=== PATIENT | male | born 1945 | race Caucasian/White ===

== ENCOUNTER 2023-01-16 11:22 | Inpatient (IN) ==
[2023-01-16 11:58] LABS: ABS Eosinophils 0.1 10^3/uL (0.0-0.5); ABS Lymphocytes 1.5 10^3/uL (1.0-4.8); ABS Monocytes 0.8 10^3/uL (0.0-1.1); ABS Neutrophils 6.4 10^3/uL (1.5-7.6); ABS Nucleated RBC 0.01 10^3/ul; Eosinophil % 1.6 %; Hematocrit 38.9 % (38-53); Hemoglobin 12.8 g/dL (13.2-16.3); Lymphocyte % 16.6 %; Mean Corpuscular Hemoglobin 29.3 pg (27-33); Mean Corpuscular Volume 88.9 fL (80-97); Mean Platelet Volume 10.7 fL (7.5-11.2); Nucleated Red Blood Cells % 0.1 /100 WBC (0.0-0.4); Platelet Count 164 10^3/uL (150-450); Red Blood Count 4.37 10^6/uL (4.06-5.63); Red Cell Distribution Width 14.7 % (12-17); White Blood Count 8.8 10^3/uL (3.6-10.2)
[2023-01-16 12:42] LABS: Albumin 3.9 g/dL (3.2-5.2); Albumin/Globulin Ratio 1.4 (1-3); C Reactive Protein 6.15 mg/L (<8.01); Calcium 9.1 mg/dL (8.6-10.3); Creatinine, Serum 1.73 mg/dL (0.67-1.17); Globulin 2.7 g/dL (2-4); Magnesium 1.8 mg/dL (1.9-2.7); Phosphorus 2.3 mg/dL (2.5-5.0); Potassium 4.6 mmol/L (3.5-5.0); Total Bilirubin 0.6 mg/dL (0.2-1.0); Total Protein 6.6 g/dL (6.4-8.9); eGFR CKD-EPI 40.2 (>60)
[2023-01-16 13:13] LABS: High Sensitivity Troponin 1 Hr 696 pg/mL (<20)
[2023-01-16] MEDS ORDERED: NS 0.9% 1000 ml BAG 1,000 ML IV ONE (13:42)
[2023-01-16] MEDS ORDERED: Iodixanol (CONTRAST) 320 MG/ML 100 ML SDV IV ONE (13:49)
[2023-01-16] MEDS ORDERED: Heparin DRIP 25,000 UNITS BAG 25,000 UNITS/500 ML BAG IV SCH (14:30)
[2023-01-16 15:00] LABS: ABS Eosinophils 0.1 10^3/uL (0.0-0.5); ABS Lymphocytes 1.1 10^3/uL (1.0-4.8); ABS Monocytes 0.7 10^3/uL (0.0-1.1); ABS Neutrophils 6.5 10^3/uL (1.5-7.6); ABS Nucleated RBC 0.01 10^3/ul; Eosinophil % 0.7 %; Hematocrit 37.5 % (38-53); Hemoglobin 12.4 g/dL (13.2-16.3); Lymphocyte % 13.1 %; Mean Corpuscular Hemoglobin 28.9 pg (27-33); Mean Corpuscular Volume 87.7 fL (80-97); Mean Platelet Volume 10.8 fL (7.5-11.2); Nucleated Red Blood Cells % 0.1 /100 WBC (0.0-0.4); Platelet Count 152 10^3/uL (150-450); Red Blood Count 4.28 10^6/uL (4.06-5.63); Red Cell Distribution Width 14.7 % (12-17); White Blood Count 8.4 10^3/uL (3.6-10.2)
[2023-01-16] MEDS ORDERED: Heparin 5000 UNITS/ML 1 mL VIAL IV SCH (15:00)
[2023-01-16 15:43] LABS: Creatinine, Serum 1.58 mg/dL (0.67-1.17); eGFR CKD-EPI 44.8 (>60)
[2023-01-16] MEDS ORDERED: Lactated Ringers 1000 ml BAG 1,000 ML IV SCH (16:00)
[2023-01-16] MEDS ORDERED: Magnesium Sulfate 2 gm BAG 2 GM/50 ML BAG IVPB ONE (17:11)
[2023-01-16 18:21] LABS: Ferritin 53.9 ng/mL (24-336)
[2023-01-17 05:20] LABS: ABS Eosinophils 0.1 10^3/uL (0.0-0.5); ABS Lymphocytes 1.5 10^3/uL (1.0-4.8); ABS Monocytes 0.8 10^3/uL (0.0-1.1); ABS Nucleated RBC 0.01 10^3/ul; Eosinophil % 1.6 %; Hematocrit 35.4 % (38-53); Lymphocyte % 19.9 %; Mean Corpuscular Hemoglobin 29.7 pg (27-33); Mean Corpuscular Volume 87.5 fL (80-97); Mean Platelet Volume 11.1 fL (7.5-11.2); Nucleated Red Blood Cells % 0.1 /100 WBC (0.0-0.4); Platelet Count 149 10^3/uL (150-450); Red Blood Count 4.04 10^6/uL (4.06-5.63); Red Cell Distribution Width 14.8 % (12-17); White Blood Count 7.4 10^3/uL (3.6-10.2)
[2023-01-17 06:20] LABS: Calcium 8.4 mg/dL (8.6-10.3); Creatinine, Serum 1.37 mg/dL (0.67-1.17); Magnesium 2.3 mg/dL (1.9-2.7); eGFR CKD-EPI 53.1 (>60)
[2023-01-17] MEDS: Enoxaparin 80 MG/0.8 ML SYR SUBCUT SCH ×2 (09:24→19:27)
[2023-01-17] MEDS: Aspirin EC 81 mg TAB.EC (enteric coated) PO SCH (09:24)
[2023-01-17] MEDS: Ferric Gluconate IV 250 MG in NS 0.9% 250 ml 200 ML IVPB SCH (14:00)
[2023-01-18 08:03] LABS: ABS Eosinophils 0.2 10^3/uL (0.0-0.5); ABS Lymphocytes 1.3 10^3/uL (1.0-4.8); ABS Monocytes 0.8 10^3/uL (0.0-1.1); ABS Neutrophils 5.6 10^3/uL (1.5-7.6); Eosinophil % 2.6 %; Hematocrit 38.1 % (38-53); Hemoglobin 12.6 g/dL (13.2-16.3); Lymphocyte % 16.3 %; Mean Corpuscular Hemoglobin 29.4 pg (27-33); Mean Corpuscular Volume 88.9 fL (80-97); Mean Platelet Volume 11.2 fL (7.5-11.2); Nucleated Red Blood Cells % 0.1 /100 WBC (0.0-0.4); Platelet Count 164 10^3/uL (150-450); Red Blood Count 4.28 10^6/uL (4.06-5.63); Red Cell Distribution Width 14.7 % (12-17); White Blood Count 7.9 10^3/uL (3.6-10.2)
[2023-01-18] MEDS: Aspirin EC 81 mg TAB.EC (enteric coated) PO SCH (08:25)
[2023-01-18] MEDS: Ferric Gluconate IV 250 MG in NS 0.9% 250 ml 200 ML IVPB SCH (08:26)
[2023-01-18] MEDS: Enoxaparin 80 MG/0.8 ML SYR SUBCUT SCH ×2 (08:26→19:28)
[2023-01-18 08:29] LABS: Albumin 3.6 g/dL (3.2-5.2); Creatinine, Serum 1.33 mg/dL (0.67-1.17); Potassium 4.5 mmol/L (3.5-5.0); Total Protein 6.2 g/dL (6.4-8.9); eGFR CKD-EPI 55.1 (>60)
[2023-01-18 08:30] LABS: Albumin/Globulin Ratio 1.4 (1-3); Globulin 2.6 g/dL (2-4); Total Bilirubin 0.9 mg/dL (0.2-1.0)
[2023-01-18] MEDS ORDERED: Ferric Gluconate IV 250 MG in NS 0.9% 250 ml 200 ML IVPB SCH (09:00)
[2023-01-18] MEDS ORDERED: Senna TAB 8.6 mg TAB PO PRN (09:53)
[2023-01-18] MEDS ORDERED: Polyethylene Glycol 3350 17 GM PACKET PO PRN (09:53)
[2023-01-18] MEDS ORDERED: Magnesium Hydroxide LIQ 30 ML UDC PO PRN (09:53)
[2023-01-19 06:24] LABS: ABS Basophils 0.1 10^3/uL (0.0-0.1); ABS Eosinophils 0.3 10^3/uL (0.0-0.5); ABS Lymphocytes 1.5 10^3/uL (1.0-4.8); ABS Monocytes 0.7 10^3/uL (0.0-1.1); ABS Neutrophils 4.4 10^3/uL (1.5-7.6); ABS Nucleated RBC 0.01 10^3/ul; Hematocrit 36.4 % (38-53); Hemoglobin 12.3 g/dL (13.2-16.3); Lymphocyte % 21.2 %; Mean Corpuscular Hemoglobin 29.4 pg (27-33); Mean Corpuscular Hgb Conc 33.6 g/dL (31-36); Mean Corpuscular Volume 87.3 fL (80-97); Mean Platelet Volume 10.7 fL (7.5-11.2); Nucleated Red Blood Cells % 0.1 /100 WBC (0.0-0.4); Platelet Count 178 10^3/uL (150-450); Red Blood Count 4.18 10^6/uL (4.06-5.63); Red Cell Distribution Width 15.2 % (12-17); White Blood Count 6.9 10^3/uL (3.6-10.2)
[2023-01-19 07:02] LABS: Calcium 8.9 mg/dL (8.6-10.3); Creatinine, Serum 1.49 mg/dL (0.67-1.17); Potassium 4.5 mmol/L (3.5-5.0)
[2023-01-19] MEDS ORDERED: CMC:LINACLOTIDE 72 MCG CAP (NF) PO SCH (09:00)
[2023-01-19] MEDS ORDERED: Ferric Gluconate IV 250 MG in NS 0.9% 250 ml 200 ML IVPB SCH (09:00)
[2023-01-19] MEDS: Enoxaparin 80 MG/0.8 ML SYR SUBCUT SCH (09:04)
[2023-01-19] MEDS: Ferric Gluconate IV 250 MG in NS 0.9% 250 ml 200 ML IVPB SCH (09:12)
[2023-01-19 10:36] VITALS: BP 143/87
== END 2023-01-19 13:10 | disposition home or self-care (01) | DRG 175 ==
LOC: ED 11:22 → EDHOLD 15:25 → ICU 16:54 → MED 17:05
PROVIDERS: ADMIT Internal Medicine Critical Care Medicine; ATTEND Internal Medicine